=== PATIENT | female | born 1950 | race Caucasian/White ===

== ENCOUNTER → 2024-03-26 | Outpatient (CLI) | payer MEDICARE ==
--- NOTE | 2024-03-26 14:28 | BD ---
EXAMINATION TYPE: Axial Bone Density DATE OF EXAM: 03/26/2024 CLINICAL HISTORY: 73 years old Female. ICD-10 CODE: M85.89 DISRD OF BONE DENSITY AND STRUCTURE , Add itional History: Height: 66.5 Weight: 221.5 FRAX RISK QUESTIONS: Alcohol (3 or more units per day): no Family History (Parent hip fracture): no Glucocorticoids (More than 3mos): no (Ex: prednisone, prednisolone, methylprednisolone, dexamethasone, and hydrocortisone). History of Fracture in Adulthood: yes Secondary Osteoporosis: 1. Type 1 Diabetes: no 2. Hyperthyroidism: no 3. Menopause before 45: no 4. Malnutrition: no 5. Chronic liver disease: no Rheumatoid Arthritis: no Current Tobacco Use: no RISK FACTORS HISTORY OF: Surgery to Spine/Hip(right/left)/Wrist (right/left): no MEDICATIONS: Thyroid Medications: levothyroxine How Long: since 1987 Osteoporosis Medications: alendronate How Long: just started EXAM MEASUREMENTS: Bone mineral densitometry was performed using the [employer] System. Bone mineral density as measured about the Lumbar spine is: ----- L1-L4(G/cm2): 1.156 T Score Values are as follows: ----- L1: -1.0 ----- L2: -1.7 ----- L3: 0.3 ----- L4: 1.5 ----- L1-L4: -0.2 Z Score Values are as follows: ----- L1: -0.5 ----- L2: -1.2 ----- L3: 0.8 ----- L4: 2.0 ----- L1-L4: 0.3 Bone mineral density : baseline Bone mineral density about the R hip (g/cm2): 0.836 Bone mineral density about the L hip (g/cm2): 0.798 T Score values are as follows: -----R Neck: -1.7 -----L Neck: -2.1 -----R Total: -1.4 -----L Total: -1.7 Z Score values are as follows: -----R Neck: -0.7 -----L Neck: -1.1 -----R Total: -0.7 -----L Total: -1.0 Bone mineral density : baseline FRAX%s: The graph provided illustrates a 18.5% chance for a major osteoporotic fx and a 3.8% chance f or the hips probability for fx in 10 years time. IMPRESSION: Osteopenia (T Score between -2.5 and -1). There is slightly increased risk of fracture and the patient may be considered for treatment. Re-Screen 2-5 years. NOTE: T-SCORE=SD OF THE YOUNG ADULT MEAN. [facility], , 03/26/2024 2:25 PM
== END | disposition home or self-care (01) ==
LOC: RADBDWWP 03-18 13:13
PROVIDERS: ATTEND Internal Medicine Endocrinology, Diabetes & Metabolism
DX: Z53.9 Procedure and treatment not carried out, unspecified reason (principal)
CPT/HCPCS: 77080